=== PATIENT | female | born 1975 | race Caucasian/White ===

== ENCOUNTER 2018-05-08 14:10 | Emergency (ER) | payer SELFPAY ==
[~2018-05-08] VITALS: Ht 157.5 cm; Wt 64.0 kg
[2018-05-08 14:18] VITALS: Ht 157.5 cm; Wt 64.0 kg
[2018-05-08 15:30] LABS: BASOPHIL % 0.4 % (0-2); PLATELET COUNT 342 x10^3mcL (130-400)
[2018-05-08 15:37] LABS: CALCIUM 8.2 mg/dL (8.5-10.1); CARBON DIOXIDE 23.6 mmol/L (21-32); CHLORIDE SERUM 107 mmol/L (98-107); CREATININE SERUM 0.5 mg/dL (0.6-1.0); GFR1 > 60 mL/min; GLUCOSE SERUM 99 mg/dL (74-106); POTASSIUM SERUM 3.4 mmol/L (3.5-5.1); SODIUM SERUM 139 mmol/L (136-145)
[2018-05-08 15:39] LABS: RED CELL DISTRIBUTION WIDTH 18.4 % (11.5-14.5)
[2018-05-08 15:42] LABS: ALKALINE PHOSPHATASE 74 U/L (46-116); ALT/SGPT 22 U/L (14-59); AST/SGOT 25 U/L (15-37); BILIRUBIN TOTAL 0.1 mg/dL (0.20-1.00); TOTAL PROTEIN, SERUM 6.5 g/dL (6.4-8.2)
[2018-05-08 15:45] LABS: ALBUMIN 3.1 g/dL (3.4-5.0)
[2018-05-08 16:23] LABS: rbc morphology (normal/abnorm) ABNORMAL (NORMAL)
[2018-05-08 16:28] LABS: ovalocyte/elliptocyte 1+
[2018-05-09 01:43] VITALS: BP 97/49
== END 2018-05-09 01:43 | disposition home or self-care (01) ==
LOC: ED 14:10
PROVIDERS: Emergency Medicine
DX: N92.1 Excessive and frequent menstruation with irregular cycle (principal); D25.9 Leiomyoma of uterus, unspecified; D64.9 Anemia, unspecified; N93.9 Abnormal uterine and vaginal bleeding, unspecified
CPT/HCPCS: 36415; J7050; P9016

== ENCOUNTER 2018-05-15 15:31 | Emergency (ER) | payer MEDICAID ==
[~2018-05-15] VITALS: Ht 165.1 cm; Wt 62.1 kg
[2018-05-15 15:36] VITALS: Ht 165.1 cm; Wt 62.1 kg
[2018-05-15 16:33] LABS: UA SPECIFIC GRAVITY 1.025 (1.005-1.035); microscopic required? YES; urine erythrocyte 3+ (NEGATIVE)
[2018-05-15 16:39] LABS: BASOPHIL % 0.4 % (0-2); PLATELET COUNT 394 x10^3mcL (130-400)
[2018-05-15 16:45] LABS: CHLORIDE SERUM 105 mmol/L (98-107); POTASSIUM SERUM 3.1 mmol/L (3.5-5.1); SODIUM SERUM 138 mmol/L (136-145)
[2018-05-15 16:53] LABS: CALCIUM 8.1 mg/dL (8.5-10.1); CREATININE SERUM 0.7 mg/dL (0.6-1.0); GFR1 > 60 mL/min; GLUCOSE SERUM 116 mg/dL (74-106)
[2018-05-15 16:54] LABS: RED CELL DISTRIBUTION WIDTH 16.2 % (11.5-14.5)
[2018-05-15 17:21] LABS: rbc morphology (normal/abnorm) ABNORMAL (NORMAL)
[2018-05-15 17:22] LABS: tear drop cell (dacryocyte) 1+
[2018-05-15 23:57] VITALS: BP 107/66
== END 2018-05-15 23:57 | disposition home or self-care (01) ==
LOC: ED 15:31
PROVIDERS: Emergency Medicine
DX: D21.9 Benign neoplasm of connective and other soft tissue, unspecified (principal); E87.6 Hypokalemia; D64.9 Anemia, unspecified
CPT/HCPCS: J1885; J2270; J7030; J7040; P9016